=== PATIENT | female | born 1970 | race Caucasian/White ===

== ENCOUNTER 2017-07-28 02:43 | Emergency (ER) | payer BC ==
[2017-07-28 02:58] VITALS: TEMP 96.1; O2SAT 99
--- NOTE | 2017-07-28 03:07 | ED.PDOC ---
History of Present Illness - General Chief Complaint: Fever Stated Complaint: nausea,diarrhea,sweats Time Seen by Provider: 07/28/17 03:04 Source: patient - History of Present Illness Initial Comments: patient comes in today for sudden onset at 2 AM of diaphoresis, febrile-like illness, weakness, and then loose stools. Patient was concerned because she did receive 3 vaccines in preparation [place] at 11 AM. Patient had the vaccine for tetanus, hepatitis A, and yellow fever. patient has never had a reaction like this before but has also not had these vaccines in the past. She has no chronic medical problems that she was recently diagnosed with stage I melanoma on her abdomen a couple of days ago. Patient takes a medication for anxiety disorder but does not normally take other medication over -the-counter. Currently she actually feels much better. She has had no recent change in her activity, by mouth intake, or questionable by mouth intake. She' s had no recent travel. Timing/Duration: 1/2 hour Severity: moderate Improving Factors: nothing Worsening Factors: nothing Allergies/Adverse Reactions: Allergies NO KNOWN ALLERGY Allergy (Verified 07/28/17 02:58) Home Medications: Ambulatory Orders Escitalopram [Lexapro] 10 mg PO DAILY 07/28/17 Review of Systems - Review of Systems Constitutional: States: chills, diaphoresis, fever EENTM: Denies: eye pain, ear pain, nose pain, throat pain Respiratory: Denies: cough, short of breath, wheezing Cardiology: Denies: chest pain, edema, palpitations, syncope Gastrointestinal/Abdominal: States: diarrhea, nausea. Denies: abdominal pain, vomiting Musculoskeletal: States: no symptoms reported Skin: States: no symptoms reported Neurological: States: no symptoms reported Past Medical History (General) - Patient Medical History Hx Stroke: No Hx Congestive Heart Failure: No Hx Diabetes: No Hx Other - free text: Anxiety and Melanoma stage I - Vaccination History Hx Tetanus, Diphtheria Vaccination: Yes - 07/27/17 Hx Influenza Vaccination: No - Social History Hx Tobacco Use: Yes Family Medical History - Family History Mother Family History: Unknown Living Status: Unknown Physical Exam - Physical Exam General Appearance: No apparent distress Eye Exam: bilateral normal Ears, Nose, Throat: hearing grossly normal, normal pharynx, other - normal gums Neck: non-tender, full range of motion, supple, normal inspection Respiratory: chest non-tender, lungs clear, normal breath sounds, no respiratory distress Cardiovascular/Chest: normal peripheral pulses, regular rate, rhythm, no edema, no gallop, no JVD, no murmur Peripheral Pulses: radial,right: 2+ Gastrointestinal/Abdominal: normal bowel sounds, non tender, soft, no organomegaly, no pulsatile mass, other - increased R protuberance on rib cage ( per patient congential) Back Exam: normal inspection 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, no motor/sensory deficits, alert, oriented x 3 Progress - Progress Progress: 07/28/17 04:15 Laboratory Results WBC 6.4 K/mm3 (4.8-10.8) 07/28/17 03:04 RBC 5.02 M/mm3 (4.20-5.40) 07/28/17 03:04 Hgb 15.1 gm/dL (12.0-16.0) 07/28/17 03:04 Hct 44.7 % (36.0-47.0) 07/28/17 03:04 MCV 89.1 fl (81.0-99.0) 07/28/17 03:04 MCH 30.1 pg (27.0-31.0) 07/28/17 03:04 MCHC 33.8 g/dL (33.0-37.0) 07/28/17 03:04 RDW 12.8 % (11.5-14.5) 07/28/17 03:04 Plt Count 163 K/mm3 (130-400) 07/28/17 03:04 MPV 9.7 fl (7.40-10.4) 07/28/17 03:04 Absolute Neuts (auto) 4.10 K/uL (1.8-6.8) 07/28/17 03:04 Absolute Lymphs (auto) 1.60 K/uL (1.0-3.4) 07/28/17 03:04 Absolute Monos (auto) 0.50 K/uL (0.2-0.8) 07/28/17 03:04 Absolute Eos (auto) 0.10 K/uL (0.0-0.4) 07/28/17 03:04 Absolute Basos (auto) 0.00 K/uL (0.0-0.1) 07/28/17 03:04 Neutrophils % 65.1 % (42.0-78.0) 07/28/17 03:04 Lymphocytes % 24.9 % (20.0-50.0) 07/28/17 03:04 Monocytes % 7.9 % (2.0-9.0) 07/28/17 03:04 Eosinophils % 1.8 % (1.0-5.0) 07/28/17 03:04 Basophils % 0.3 % (0.0-2.0) 07/28/17 03:04 Sodium 139 mmol/L (135-145) 07/28/17 03:04 Potassium 4.0 mmol/L (3.6-5.0) 07/28/17 03:04 Chloride 106 mmol/L (101-111) 07/28/17 03:04 Carbon Dioxide 27 mmol/L (21-31) 07/28/17 03:04 Anion Gap 10.0 (12-18) L 07/28/17 03:04 BUN 19 mg/dL (7-18) H 07/28/17 03:04 Creatinine 0.85 mg/dL (0.6-1.3) 07/28/17 03:04 BUN/Creatinine Ratio 22.4 (10-20) H 07/28/17 03:04 Random Glucose 112 mg/dL (70-105) H 07/28/17 03:04 Serum Osmolality 280.5 mOsm/L (275-295) 07/28/17 03:04 Calcium 9.2 mg/dL (8.4-10.2) 07/28/17 03:04 Total Bilirubin 0.6 mg/dL (0.2-1.0) 07/28/17 03:04 AST 23 IU/L (10-42) 07/28/17 03:04 ALT 15 IU/L (10-60) 07/28/17 03:04 Alkaline Phosphatase 39 IU/L (42-121) L 07/28/17 03:04 Serum Total Protein 6.9 gm/dL (6.4-8.2) 07/28/17 03:04 Albumin 4.3 g/dl (3.2-5.5) 07/28/17 03:04 Globulin 2.6 gm/dL (2.3-3.5) 07/28/17 03:04 Albumin/Globulin Ratio 1.7 (1.1-1.9) 07/28/17 03:04 Departure - Departure Clinical Impression: Medication adverse effect Qualifiers: Encounter type: initial encounter Qualified Code(s): T88.7XXA - Unspecified adverse effect of drug or medicament, initial encounter Disposition: Discharge to Home or Self Care Condition: Good Departure Forms: ED Discharge - Pt. Copy, Patient Portal Self Enrollment Diet: regular diet Activity: increase activity as tolerated Home Medications: Ambulatory Orders Escitalopram [Lexapro] 10 mg PO DAILY 07/28/17 Additional Instructions: Return to ER/call MD for nausea, emesis, jaundice, or continuation of subjective fever after initial 24 hours.
[2017-07-28 04:22] VITALS: BP 113/73
== END 2017-07-28 04:22 | disposition home or self-care (01) ==
LOC: ER 02:43
DX: R50.83 Postvaccination fever (principal); R53.1 Weakness; R19.7 Diarrhea, unspecified; T50.A95A Adverse effect of other bacterial vaccines, initial encounter; T50.B95A Adverse effect of other viral vaccines, initial encounter; T50.Z95A Adverse effect of other vaccines and biological substances, initial encounter; Z87.891 Personal history of nicotine dependence; F41.9 Anxiety disorder, unspecified; Z85.820 Personal history of malignant melanoma of skin